=== PATIENT | male | born 1975 | race Caucasian/White ===

== ENCOUNTER 2019-05-19 21:21 | Emergency (ER) | payer OTHER ==
[2019-05-19] MEDS ORDERED: DIPH,PERTUS(ACELL)TETVAC-LF 0.5 ML VIAL IM ONE (21:26)
--- NOTE | 2019-05-19 21:29 | ED ---
Skin/Abscess/FB HPI - General Stated complaint: exposure Time Seen by Provider: 05/19/19 21:26 - History of Present Illness Initial comments: 43-year-old male patient presents to the emergency department today for evaluation of a puncture injury. 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 Patient did cleanse the area immediately. Source was tested and was negative for HIV. Patient is unsure when his last tetanus vaccine was administered. He denies any difficulty with range of motion or significant pain to the area. Denies any other injuries. - Related Data Home Medications Medication Instructions Recorded Confirmed Omeprazole [PriLOSEC] 40 mg PO DAILY 05/19/19 05/19/19 Allergies Allergy/AdvReac Type Severity Reaction Status Date / Time nifedipine [From Procardia] Allergy Rapid Verified 05/19/19 21:33 Heart Rate Review of Systems ROS Statement: Those systems with pertinent positive or pertinent negative responses have been documented in the HPI. ROS Other: All systems not noted in ROS Statement are negative. General Exam General appearance: alert, in no apparent distress, other (This is a well- developed, well-nourished adult patient in no acute distress. Vital signs upon presentation are temperature 97.9 degrees, pulse 71, respirations 16, blood pressure 130/91, pulse ox 99% on room air.) Respiratory exam: Present: normal lung sounds bilaterally. Absent: respiratory distress, wheezes, rales, rhonchi, stridor Cardiovascular Exam: Present: regular rate, normal rhythm, normal heart sounds. Absent: systolic murmur, diastolic murmur, rubs, gallop, clicks Extremities exam: Present: full ROM, normal capillary refill, other (This is a puncture wound noted to the palmar surface of the left distal thumb. Mild bleeding noted. Skin is otherwise pink, warm, dry. Cap refills less than 3 seconds.). Absent: tenderness, pedal edema, joint swelling, calf tenderness Neurological exam: Present: alert, oriented X3, CN II-XII intact Psychiatric exam: Present: normal affect, normal mood Skin exam: Present: warm, dry, intact, normal color. Absent: rash Course Vital Signs 05/19/19 21:34 Temperature 97.9 F Pulse Rate 71 Respiratory 16 Rate Blood Pressure 130/91 O2 Sat by Pulse 99 Oximetry Medical Decision Making - Medical Decision Making 43-year-old male patient presents to the emergency department today for evalu ation of puncture to the left thumb. Physical examination did reveal a puncture into the distal aspect of the palmar surface of the left thumb. There is mild bleeding noted. We did draw labs for postexposure testing. Source was drawn and was negative for rapid HIV. He is instructed to follow-up with employee health as needed. Return parameters discussed in detail. He verbalizes understanding and agrees this plan. Disposition Clinical Impression: Accidental needlestick injury with exposure to body fluid Disposition: HOME SELF-CARE Condition: Good Instructions (If sedation given, give patient instructions): Body Substance Exposure (ED) Additional Instructions: Keep area clean and dry. Monitor for signs or symptoms of infection including but not limited to redness, swelling, drainage of pus, fever, or chills. Follow-up with employee health services for further testing as directed. Return to the emergency department for any other new, worsening, or concerning symptoms. Is patient prescribed a controlled substance at d/c from ED?: No Referrals: None,Stated [Primary Care Provider] - 1-2 days Time of Disposition: 21:29
[2019-05-19 21:37] VITALS: BP 130/91; PULSE 71; RESP 16; TEMP 97.9
[2019-05-20 03:21] LABS: HIV 1 AB Non-Reactive (Non-Reactive); HIV 2 AB Non-Reactive (Non-Reactive); HIV AB P24 Non-Reactive (Non-Reactive); HIV P24 AG Non-Reactive (Non-Reactive)
[2019-05-20 04:03] LABS: Hepatitis B Surface AB- Quant 407.6 mIU/mL; Hepatitis B Surface Antibody Reactive (Non-Reactive); Hepatitis C IgG Antibody Non-Reactive (Non-Reactive)
== END 2019-05-19 21:59 | disposition home or self-care (01) ==
LOC: EC 21:21
DX: S61.032A Puncture wound without foreign body of left thumb without damage to nail, initial encounter (principal); K21.9 Gastro-esophageal reflux disease without esophagitis; Y93.89 Activity, other specified; Z88.8 Allergy status to other drugs, medicaments and biological substances; Z79.899 Other long term (current) drug therapy; Z23 Encounter for immunization; W46.0XXA Contact with hypodermic needle, initial encounter; Y92.234 Operating room of hospital as the place of occurrence of the external cause
CPT/HCPCS: 36415; 86706; 86803; 87390; 90471; 90715; 99283

== ENCOUNTER 2020-01-17 13:30 | Emergency (ER) | payer OTHER ==
--- NOTE | 2020-01-17 13:56 | ED ---
General Adult HPI - General Stated complaint: k wire stick [facility] Time Seen by Provider: 01/17/20 13:45 Source: patient, RN notes reviewed Limitations: no limitations - History of Present Illness Initial comments: Patient is a pleasant 44-year-old male presenting to the emergency department following a needle stick. Incident occurred prior to arrival and surgery Center. Patient does have the source blood present. Patient states he'll exposure with left index finger. Patient did clean it out and use Betadine. Tetanus immunization is up to date. No complaints. - Related Data Home Medications Medication Instructions Recorded Confirmed Omeprazole [PriLOSEC] 40 mg PO DAILY 05/19/19 05/19/19 Allergies Allergy/AdvReac Type Severity Reaction Status Date / Time nifedipine [From Procardia] Allergy Rapid Verified 01/17/20 13:56 Heart Rate Review of Systems ROS Statement: Those systems with pertinent positive or pertinent negative responses have been documented in the HPI. ROS Other: All systems not noted in ROS Statement are negative. Past Medical History Past Medical History: GERD/Reflux Additional Past Medical History / Comment(s): [place] History of Any Multi-Drug Resistant Organisms: None Reported Past Surgical History: Adenoidectomy, Tonsillectomy Past Psychological History: No Psychological Hx Reported Past Alcohol Use History: None Reported Past Drug Use History: None Reported General Exam Limitations: no limitations General appearance: alert, in no apparent distress Head exam: Present: normocephalic Eye exam: Present: normal appearance Respiratory exam: Present: normal lung sounds bilaterally Cardiovascular Exam: Present: regular rate, normal rhythm Extremities exam: Present: normal inspection, other (Unable to visualize any significant injury left index finger) Neurological exam: Present: alert. Absent: motor sensory deficit Psychiatric exam: Present: normal affect, normal mood Skin exam: Present: normal color. Absent: rash Course Vital Signs 01/17/20 13:56 Temperature 98.7 F Pulse Rate 84 Respiratory 18 Rate Blood Pressure 134/76 O2 Sat by Pulse 96 Oximetry - Reevaluation(s) Reevaluation #1: 01/17/20 21:33 As of 2132 lab has still not provided information on sources rapid HIV. Patient is updated regarding this. Nursing follow-up will be notified. Medical Decision Making - Medical Decision Making Patient is aware of risks associated and will be updated regarding source HIV status. Patient labs to be sent for testing. Disposition Clinical Impression: Needle stick injury Disposition: HOME SELF-CARE Instructions (If sedation given, give patient instructions): Needle Stick Injuries (ED) Additional Instructions: Please follow-up with employee health in the next couple days for repeat testing. Use cautions regarding potential spread of undiagnosed HIV. Return for finger problems, redness or swelling, worsening symptoms, general illness or other concerns. Is patient prescribed a controlled substance at d/c from ED?: No Referrals: Jack Hilton [STAFF PHYSICIAN] - 1-2 days Time of Disposition: 13:50
[2020-01-17 13:58] VITALS: BP 134/76; PULSE 84; RESP 18; TEMP 98.7
[2020-01-18 01:30] LABS: HIV 2 AB Non-Reactive (Non-Reactive); HIV AB P24 Non-Reactive (Non-Reactive); HIV P24 AG Non-Reactive (Non-Reactive)
[2020-01-18 02:15] LABS: Hepatitis B Surface Antibody Reactive (Non-Reactive); Hepatitis C IgG Antibody Non-Reactive (Non-Reactive)
== END 2020-01-17 14:02 | disposition home or self-care (01) ==
LOC: EC 13:30
DX: S61.231A Puncture wound without foreign body of left index finger without damage to nail, initial encounter (principal); K21.9 Gastro-esophageal reflux disease without esophagitis; Z79.899 Other long term (current) drug therapy; Z88.8 Allergy status to other drugs, medicaments and biological substances; W46.0XXA Contact with hypodermic needle, initial encounter; Y92.69 Other specified industrial and construction area as the place of occurrence of the external cause; Y99.0 Civilian activity done for income or pay
CPT/HCPCS: 36415; 86706; 86803; 87390; 99283